=== PATIENT | female | born 1990 | race Caucasian/White ===

== ENCOUNTER 2020-06-27 10:49 | Emergency (ER) | payer BC ==
[~2020-06-27] VITALS: Ht 165.1 cm; Wt 77.3 kg
[~2020-06-27 10:49] MED LIST: MOTRIN 600600 MG/TAB PO; PERCOCET 325 MG1 TA2 PO; PRENATAL1 TA1 PO
[2020-06-27 10:58] VITALS: TEMP 98
[2020-06-27 11:42] LABS: BASO # 0.1 (0.0-0.2); BASO % 0.5 % (0.0-2.0); EOS # 0.1 (0.0-0.7); EOS % 1.3 % (0-4.0); GRAN # 7.3 (1.4-6.5); GRAN % 68.7 % (42.2-75.2); HEMATOCRIT 46.1 % (37.0-47.0); HEMOGLOBIN 15.5 g/dl (12.5-16.0); LYMPH # 2.4 (1.2-3.4); LYMPH % 22.7 % (20.0-51.0); MEAN CELL VOLUME 95 fl (80.0-100.0); MEAN CORPUSCULAR HEMOGLOBIN 32 pg (27.0-31.0); MEAN CORPUSCULAR HGB CONC 34 g/dl (33.0-37.0); MEAN PLATELET VOLUME 10.1 fl (7.4-10.4); MONO # 0.7 (0.1-0.6); MONO % 6.5 % (1.7-9.3); PLATELET COUNT 223 K/mm3 (130-400); RED BLOOD COUNT 4.87 M/mm3 (4.10-5.30)
[2020-06-27 11:56] LABS: ALANINE AMINOTRANSFERASE 18 U/L (4-34); ALBUMIN 4.9 gm/dL (3.5-5.0); ALKALINE PHOSPHATASE 84 U/L (50-136); ANION GAP 10 mmol/L (7-16); AST,SGOT 33 U/L (15-37); BILIRUBIN,TOTAL 0.7 mg/dL (0.0-1.0); BLOOD UREA NITROGEN 12 mg/dL (7-17); CARBON DIOXIDE 22 mmol/L (22-30); CHLORIDE 105 mmol/L (98-107); CREATININE, serum 0.71 (0.52-1.25); GLUCOSE 108 mg/dL (74-106); POTASSIUM 3.8 mmol/L (3.4-5.0); SODIUM 138 mmol/L (137-145); TOTAL PROTEIN 8.1 gm/dL (6.4-8.2)
[2020-06-27 12:09] LABS: TROPONIN-I < 0.012 ng/mL (0.000-0.035)
[2020-06-27 13:10] VITALS: BP 123/79; PULSE 89
== END 2020-06-27 13:11 | disposition home or self-care (01) ==
LOC: COL.ER 10:49
PROVIDERS: Physician Assistant
DX: F41.9 Anxiety disorder, unspecified (principal); R07.89 Other chest pain; F17.210 Nicotine dependence, cigarettes, uncomplicated; Z88.8 Allergy status to other drugs, medicaments and biological substances
CPT/HCPCS: J1885; J2060; J7030

== ENCOUNTER → 2021-05-02 | Outpatient (CLI) | payer BC ==
[~2021-05-02] MED LIST changes: +IBU600 MG PO; +PRENATAL TABLET PO; +TUMS ULTRA ST1000 MG PO
== END ==
LOC: DIA.ED 08:17
DX: O24.419 Gestational diabetes mellitus in pregnancy, unspecified control (principal)
CPT/HCPCS: G0108

== ENCOUNTER 2021-06-23 06:48 | Inpatient (IN) | payer BC ==
[~2021-06-23] VITALS: Ht 170.2 cm; Wt 85.5 kg
[~2021-06-23 06:48] MED LIST changes: -IBU600 MG PO; -PRENATAL TABLET PO; -TUMS ULTRA ST1000 MG PO
[2021-06-24] VITALS (29 sets, daily range): BP systolic 97–148; BP diastolic 56–84; PULSE 75–98; TEMP 97.7–98.3
--- NOTE | 2021-06-24 13:15 | NUR ---
Patient ambulatory to LR2 with spouse, changed into gown, FHR/TOCO monitors placed and explained. Patient denies any leaking of fluid/vaginal bleeding/regular contractions/decreased movement. Plan of care dicussed. 1340: IV started in right upper arm, blood obtained and to lab, LR flushed. Assessment completed, consents signed, and packet given. 1345: Dr. Ramsay at bedside discussing plan of care and quesitons answered. 1401: Pitocin induction discussed and patient agrees with plan. Pitocin started at 2 mU per protocol.
[2021-06-24 13:56] LABS: HEMATOCRIT 38.3 % (37.0-47.0); HEMOGLOBIN 13.1 g/dl (12.5-16.0); MEAN CELL VOLUME 91 fl (80.0-100.0); MEAN CORPUSCULAR HEMOGLOBIN 31 pg (27-31); MEAN CORPUSCULAR HGB CONC 34 g/dl (33.0-37.0); MEAN PLATELET VOLUME 11.3 fl (7.4-10.4); PLATELET COUNT 265 K/mm3 (130-400); RED BLOOD COUNT 4.23 M/mm3 (4.10-5.30); REDCELL DISTRIBUTION WIDTH-CV 13.2 % (11.5-14.5)
[2021-06-24] MEDS ORDERED: TUMS ULTRA ST1000 MG PO (14:08)
[2021-06-24] MEDS ORDERED: PRENATAL TABLET PO (14:08)
[2021-06-24 14:46] LABS: BAND 5 % (0-10); LYMPHOCYTE 19 % (20.0-51.0); METAMYELOCYTE 1 % (0-0); NEUTROPHILS 68 % (42.0-75.2)
[2021-06-24 14:47] LABS: PLATELET ESTIMATE NORMAL (NORMAL)
[2021-06-24 16:06] LABS: TRICYCLIC ANTIDEPRESS URINE NEGATIVE
--- NOTE | 2021-06-24 17:20 | NUR ---
Dr. Ramsay at bedside and assessing patient and FHR strip. 1724:SVE-4/70/-3 and AROM at this time with clear fluid noted. Plan of care discussed. Dr. Ramsay updating patient on positive drug screening. Patient states "the only thing I can think that I took was some new eye drops that were prescribed to me". Dr. Ramsay informing patient on plan of care due to this. 1745: This RN at bedside and patient states " I did take ibuprofen a couple days ago because I had a headache and had ran out of tylenol and could not go anywhere since we were in quarantine". Patient updated that that could potentially cause the positive screening. Spouse asking further questions on plan and if DCF would need to be involved. This RN informing patient that further testing will be done on babys cord, nursery will update them on plan of care, and social media specialist may need to be involved. 1750: Aguilar catheter placed and SVE-5/80/-1 with a lot of clear fluid noted. Patient right lateral with left leg resting in stirrup.
--- NOTE | 2021-06-24 18:35 | NUR ---
183-Patient reports increased pressure. SVE 10/100/0. 184- notified. Patient prepped for vaginal delivery. Pushing instructions reviewed with patient. 1844-Aguilar discontinued. 1854- at bedside assessing FHR and patient. Patient begins pushing with ctx. 1858-Spontaneous vaginal delivery of viable male . Infant placed on mothers abdomen. bulb suctions. Cord clamped x2, FOB cuts cord. Sally, RN assumes care of infant. 1904-Spontaneus vaginal delivery of placenta. Pitocin started per protocol. This RN begins fundal massages. Small bleeding noted with quarter sized clots. Fundas firm. begins repair. 1909-Patient is repositioned in bed. Ice pack to perineum. Plan of care discussed.
[2021-06-25 02:19] VITALS: BP 103/68; PULSE 75; TEMP 97.7
[2021-06-25 05:00] VITALS: BP 110/69; PULSE 78; TEMP 97.7
[2021-06-25 07:33] LABS: HEMOGLOBIN 11.3 g/dl (12.5-16.0)
[2021-06-25 08:15] VITALS: BP 108/72; PULSE 80; TEMP 97.8
[2021-06-25 13:35] VITALS: BP 113/75; PULSE 70; TEMP 98.2
[2021-06-25 17:15] VITALS: BP 110/70; PULSE 80; TEMP 97.8
[2021-06-25 18:49] VITALS: BP 115/69; PULSE 83; TEMP 97.9
[2021-06-26 08:05] VITALS: BP 128/80; PULSE 75; TEMP 97.9
[2021-06-26] MEDS ORDERED: IBU600 MG PO (08:58)
--- NOTE | 2021-06-26 10:15 | NUR ---
Discharge instructions and follow up care reviewed with pt and at the bedside. Both verbalized an understanding, agreed with the plan and states no questions or concerns at this time.
== END 2021-06-26 10:30 | disposition home or self-care (01) | DRG 806 ==
LOC: LDR 06-24 06:47 → OB 06-24 12:59 → LDR 06-27 10:28
PROVIDERS: ADMIT Obstetrics & Gynecology
PROC: 10E0XZZ Delivery of Products of Conception, External Approach (ICD-10-PCS; principal; 2021-06-24)
PROC: 3E033VJ Introduction of Other Hormone into Peripheral Vein, Percutaneous Approach (ICD-10-PCS; 2021-06-24)
PROC: 10907ZC Drainage of Amniotic Fluid, Therapeutic from Products of Conception, Via Natural or Artificial Opening (ICD-10-PCS; 2021-06-24)
PROC: 0HQ9XZZ Repair Perineum Skin, External Approach (ICD-10-PCS; 2021-06-24)
DX: O24.420 Gestational diabetes mellitus in childbirth, diet controlled (principal); O99.324 Drug use complicating childbirth; Z37.0 Single live birth; O99.344 Other mental disorders complicating childbirth; F32.A Depression, unspecified; F41.9 Anxiety disorder, unspecified; O99.824 Streptococcus B carrier state complicating childbirth; F19.90 Other psychoactive substance use, unspecified, uncomplicated; O70.0 First degree perineal laceration during delivery; Z3A.40 40 weeks gestation of pregnancy; Z23 Encounter for immunization
CPT/HCPCS: J2540; J2590; J7120